=== PATIENT | female | born 1980 | race Caucasian/White ===

== ENCOUNTER 2017-05-26 20:10 | Inpatient (IN) | payer OTHER ==
[~2017-05-26] VITALS: Ht 157.5 cm; Wt 87.1 kg
[2017-05-26 20:45] VITALS: BP 108/65
[2017-05-26] MEDS ORDERED: CITRIC ACID/SODIUM CITRATE 30 ML UDC PO ONE (20:45)
[2017-05-26] MEDS ORDERED: LACTATED RINGERS 1,000 ML IV SCH (20:45)
[2017-05-26] MEDS ORDERED: NALBUPHINE 10 MG/ML AMP IVP PRN (20:45)
[2017-05-26 21:26] LABS: APPEARANCE,URINE SL CLOUDY (CLEAR); BLOOD, URINE NEGATIVE (NEGATIVE); COLOR,URINE YELLOW (YELLOW); LEUKOCYTE ESTERASE ,URINE 2+ (NEGATIVE); NITRITE, URINE NEGATIVE (NEGATIVE); PROTEIN,URINE TRACE (NEGATIVE); UGLUCOSE NEGATIVE (NEGATIVE); UROBILINOGEN,URINE 0.2 EU/dL (0.2 - 1)
[2017-05-26 21:27] LABS: BILIRUBIN,URINE NEGATIVE (NEGATIVE)
[2017-05-26] MEDS ORDERED: CARBOPROST 250 MCG/ML AMP IM SCH (21:30)
[2017-05-26] MEDS ORDERED: METHYLERGONOVINE 0.2 MG/ML AMP IM SCH (21:30)
[2017-05-26 21:31] LABS: RBC,URINE 0-5 /HPF (0-5)
[2017-05-26 21:32] LABS: BACTERIA,URINE 2+ /HPF (None Seen); MUCUS,URINE 2+ /LPF (None Seen); SQUAMOUS EPITHELIAL CELL,UR 40-60 /LPF (0-3 (FEW)); WBC,URINE 60-80 /HPF (0-5)
[2017-05-26 21:33] LABS: TRICHOMONAS,URINE Rare /HPF (None Seen)
[2017-05-26] MEDS ORDERED: ONDANSETRON 4 MG/2 ML VIAL ONE (21:45)
[2017-05-26] MEDS ORDERED: ePHEDrine 50 MG/ML VIAL ONE (21:45)
[2017-05-26] MEDS ORDERED: BUPIVACAINE-MPF 0.75% 10 ML VIAL INJ ONE (21:45)
[2017-05-26] MEDS ORDERED: ceFAZolin 1,000 MG VIAL ONE (21:47)
[2017-05-26] MEDS ORDERED: OXYTOCIN 10 UNITS/ML VIAL ONE (21:48)
[2017-05-26 21:53] LABS: BASOPHILS % (AUTO) 0.2 % (0.0-2.0); EOSINOPHILS # (AUTO) 0.2 K/uL (0-0.4); EOSINOPHILS % (AUTO) 2.9 % (0.0-4.0); HEMATOCRIT 25.6 % (36-48); HEMOGLOBIN 7.5 g/dL (12.0-16.0); LYMPHOCYTES # (AUTO) 1.4 K/uL (2.5-16.5); LYMPHOCYTES % (AUTO) 19.7 % (20.5-51.1); MEAN CORPUSCULAR HEMOGLOBIN 18 pg (27-31); MEAN CORPUSCULAR HGB CONC 30 g/dL (33-37); MEAN CORPUSCULAR VOLUME 60 fL (80-94); MONOCYTES # (AUTO) 0.6 K/uL (0.8-1.0); MONOCYTES % (AUTO) 7.8 % (1.7-9.3); NEUTROPHILS # (AUTO) 5.1 K/uL (1.8-7.7); NEUTROPHILS % (AUTO) 69.4 % (42.2-75.2); PLATELET COUNT (AUTO) 326 K/uL (140-450); RED BLOOD CELL COUNT(AUTO) 4.25 MIL/uL (4.20-5.40); RED CELL DISTRIBUTION WIDTH 18.2 % (11.6-13.7); WHITE BLOOD COUNT (AUTO) 7.3 K/uL (4.8-10.8)
[2017-05-26] MEDS ORDERED: CITRIC ACID/SODIUM CITRATE 30 ML UDC ONE (21:53)
[2017-05-26] MEDS ORDERED: MIDAZOLAM 2 MG/2 ML VIAL ONE (22:00)
[2017-05-26] MEDS ORDERED: fentaNYL 0.05 MG/ML VIAL ONE (22:00)
[2017-05-26] MEDS ORDERED: KETAMINE 500 MG/5 ML VIAL ONE (22:01)
[2017-05-26] MEDS ORDERED: MORPHINE PRES FREE 10 MG/10 ML AMP IV ONE (22:01)
[2017-05-26 22:08] LABS: ANION GAP 12.7 (8-16); CALCIUM 7.6 mg/dL (8.5-10.1); CREATININE 0.6 mg/dL (0.6-1.3); POTASSIUM 3.7 mmol/L (3.5-5.1)
[2017-05-26 22:14] LABS: ALBUMIN 1.9 g/dL (3.4-5.0); TOTAL BILIRUBIN 0.3 mg/dL (0.0-1.0); TOTAL PROTEIN, SERUM 6.6 g/dL (6.4-8.2)
[2017-05-26] MEDS ORDERED: HYDROcodone/APAP 5/325 MG 1 TAB TAB PO PRN (22:15)
[2017-05-26] MEDS ORDERED: TRIMETHOBENZAMIDE 200 MG/2 ML SYR IM PRN (22:15)
[2017-05-26] MEDS ORDERED: METHYLERGONOVINE 0.2 MG/ML AMP IM PRN (22:15)
[2017-05-26] MEDS ORDERED: MEASLES, MUMPS, AND RUBELLA 1 VIAL SQVAC PRN (22:15)
[2017-05-26] MEDS ORDERED: TEMAZEPAM 15 MG CAP PO PRN (22:15)
[2017-05-26] MEDS ORDERED: IBUPROFEN 800 MG TAB PO PRN (22:15)
[2017-05-26] MEDS ORDERED: SIMETHICONE 80 MG TAB.CHEW PO PRN (22:15)
[2017-05-26] MEDS ORDERED: ceFAZolin 1,000 MG VIAL IVP ONE (22:19)
[2017-05-26] MEDS ORDERED: MORPHINE SULFATE 4 MG/ML SYR IVP PRN ×2 (22:20)
[2017-05-26] MEDS ORDERED: METOCLOPRAMIDE 10 MG/2 ML INJ VIAL IVP PRN (22:20)
[2017-05-26] MEDS ORDERED: MIDAZOLAM 2 MG/2 ML VIAL IV SCH (22:20)
[2017-05-26] MEDS ORDERED: MORPHINE SULFATE 2 MG/ML SYR IVP PRN (22:20)
[2017-05-26] MEDS ORDERED: IRON65TA11 PO (22:25)
[2017-05-26] MEDS ORDERED: PREN-546 PO (22:25)
[2017-05-26] MEDS ORDERED: OXYTOCIN 20 UNITS/LR PREMIX 1,000 ML IV ONE (23:11)
[2017-05-26] MEDS: OXYTOCIN 20 UNITS/LR PREMIX 1,000 ML IV SCH ×2 (23:12→23:42)
[2017-05-26] MEDS ORDERED: diphenhydrAMINE 50 MG/ML VIAL ONE (23:36)
[2017-05-27] MEDS ORDERED: KETOROLAC 30 MG/ML VIAL IVP PRN (04:25)
[2017-05-27] MEDS ORDERED: ONDANSETRON 4 MG/2 ML VIAL IVP PRN (04:25)
[2017-05-27] MEDS: diphenhydrAMINE 50 MG/ML VIAL IVP PRN ×2 (04:47→09:15)
[2017-05-27 06:02] LABS: BASOPHILS % (AUTO) 0.1 % (0.0-2.0); MONOCYTES # (AUTO) 0.6 K/uL (0.8-1.0); MONOCYTES % (AUTO) 6.2 % (1.7-9.3); NEUTROPHILS # (AUTO) 7.3 K/uL (1.8-7.7)
[2017-05-27 06:07] LABS: EOSINOPHILS # (AUTO) 0.1 K/uL (0-0.4); EOSINOPHILS % (AUTO) 1.4 % (0.0-4.0); HEMATOCRIT 23.2 % (36-48); LYMPHOCYTES # (AUTO) 1.2 K/uL (2.5-16.5); LYMPHOCYTES % (AUTO) 12.7 % (20.5-51.1); MEAN CORPUSCULAR HEMOGLOBIN 18 pg (27-31); MEAN CORPUSCULAR HGB CONC 30 g/dL (33-37); MEAN CORPUSCULAR VOLUME 60 fL (80-94); NEUTROPHILS % (AUTO) 79.6 % (42.2-75.2); PLATELET COUNT (AUTO) 291 K/uL (140-450); RED CELL DISTRIBUTION WIDTH 18.6 % (11.6-13.7); WHITE BLOOD COUNT (AUTO) 9.3 K/uL (4.8-10.8)
[2017-05-27] MEDS: OXYTOCIN 20 UNITS/LR PREMIX 1,000 ML IV SCH ×2 (06:45→14:47)
[2017-05-27] MEDS: FERROUS SULFATE 325 MG TABEC PO SCH ×3 (09:15→19:01)
[2017-05-27 19:39] LABS: HEMATOCRIT 27.8 % (36-48); HEMOGLOBIN 8.5 g/dL (12.0-16.0)
[2017-05-27] MEDS: DOCUSATE SOD/SENNA 50/8.6 MG 1 TAB PO SCH (20:59)
[2017-05-28] MEDS: oxyCODONE/APAP 5/325 MG 1 TAB TAB PO PRN ×2 (04:07→15:01)
[2017-05-28] MEDS: FERROUS SULFATE 325 MG TABEC PO SCH ×3 (09:26→18:00)
[2017-05-28] MEDS: DOCUSATE SOD/SENNA 50/8.6 MG 1 TAB PO SCH (20:24)
[2017-05-29] MEDS: oxyCODONE/APAP 5/325 MG 1 TAB TAB PO PRN ×2 (02:19→22:24)
[2017-05-29] MEDS: FERROUS SULFATE 325 MG TABEC PO SCH ×3 (07:51→19:26)
[2017-05-29] MEDS ORDERED: IBUP800T99 PO (10:27)
[2017-05-30] MEDS: oxyCODONE/APAP 5/325 MG 1 TAB TAB PO PRN (04:25)
[2017-05-30] MEDS: FERROUS SULFATE 325 MG TABEC PO SCH ×2 (08:53→12:17)
== END 2017-05-30 18:25 | disposition home or self-care (01) | DRG 540 ==
LOC: MLD 20:10 → OBSVTOIN 20:10 → MFCC 23:45
PROVIDERS: ADMIT Obstetrics & Gynecology; ATTEND Obstetrics & Gynecology
PROC: 10D00Z1 Extraction of Products of Conception, Low, Open Approach (ICD-10-PCS; principal; 2017-05-26 21:45)
PROC: 30233N1 Transfusion of Nonautologous Red Blood Cells into Peripheral Vein, Percutaneous Approach (ICD-10-PCS; 2017-05-27)
DX: O34.211 Maternal care for low transverse scar from previous cesarean delivery (principal); O99.02 Anemia complicating childbirth; Z37.0 Single live birth; O09.523 Supervision of elderly multigravida, third trimester; Z3A.38 38 weeks gestation of pregnancy; Z23 Encounter for immunization
CPT/HCPCS: 36415; 51702; 76805; 80053; 81001; 85018; 85025; 86592; 86762; 86886; 86900; 86901; 86920; 87086; 90715; J0690; J1200; J2250; J2270; J2405; J2590; J3010; J3490; J7030; J7060; J7120; P9016; Q0092